=== PATIENT | female | born 1990 | race Asian ===

== ENCOUNTER → 2019-01-27 | Outpatient (REF) | payer OTHER | LOC: M LAB LCGH 09:12 | PROVIDERS: ATTEND Obstetrics & Gynecology | DX: Z87.898 Personal history of other specified conditions (principal) ==

== ENCOUNTER → 2020-08-14 | Outpatient (REF) | payer OTHER ==
[2020-08-14 18:27] LABS: MAU/CREAT RATIO 227.4 MCG/MG (0.0-30.0)
== END ==
LOC: M LAB REF 17:14
PROVIDERS: ATTEND Internal Medicine Endocrinology, Diabetes & Metabolism
DX: E11.65 Type 2 diabetes mellitus with hyperglycemia (principal)

== ENCOUNTER 2021-04-04 14:24 | Inpatient (IN) | payer OTHER ==
[~2021-04-04] VITALS: Ht 154.9 cm; Wt 86.0 kg
[2021-04-04] MEDS ORDERED: TRUL0.5I SC (14:33)
[2021-04-04] MEDS ORDERED: LISI20TA33 PO (14:33)
[2021-04-04] MEDS ORDERED: STEG15TA PO (14:33)
[2021-04-04] MEDS ORDERED: VASC1CAP2 PO (14:33)
[2021-04-04] MEDS ORDERED: FENO134C19 PO (14:33)
[2021-04-04] MEDS ORDERED: BASA100I SC (14:34)
[2021-04-04 16:45] LABS: BASO # 0.1 10^3/uL (0.0-0.2); BASO % 0.4 % (0.0-1.0); EOS # 0.3 10^3/uL (0.0-0.5); EOS % 1.4 % (0.0-3.0); HEMATOCRIT 39.9 % (36.0-47.0); LYMPH # 2.3 10^3/uL (1.5-5.0); LYMPH % 12.2 % (24.0-44.0); MEAN CORPUSCULAR VOLUME 84.4 fl (80.0-96.0); MONO # 0.8 10^3/uL (0.0-0.8); NEUTROPHILS # 15.6 10^3/uL (1.5-8.5); NEUTROPHILS % 81.4 % (36.0-66.0); PLATELET COUNT, AUTOMATED 376 10^3/uL (150-450); RED BLOOD COUNT 4.73 10^6/uL (4.00-5.40); WHITE BLOOD COUNT 19.2 10^3/uL (4.0-10.0)
[2021-04-04] MEDS ORDERED: PANTOPRAZOLE 40MG VIAL (C9113 PER 1) IV ONE (16:50)
[2021-04-04] MEDS ORDERED: SUCRALFATE 1 GM TAB PO ONE (16:50)
[2021-04-04] MEDS ORDERED: GI COCKTAIL 50ML BTL(HYOSCYAMINE/MAALOX/LIDOCAINE VISCOUS)(1:3:1) PO ONE (16:50)
[2021-04-04] MEDS ORDERED: NS 1,000 ML IV ONE (16:50)
[2021-04-04] MEDS ORDERED: ONDANSETRON 4MG/2ML VIAL IV ONE (16:50)
[2021-04-04 17:09] LABS: HCG, SERUM QUALITATIVE NEGATIVE (NEGATIVE)
[2021-04-04 17:33] LABS: ALBUMIN 3.2 GM/DL (3.2-5.2); BILIRUBIN,DIRECT < 0.1 MG/DL (0.0-0.2); BILIRUBIN,TOTAL 1.3 MG/DL (0.2-1.0); LIPASE 4325 U/L (73-393); TOTAL PROTEIN 7.9 GM/DL (6.4-8.2)
[2021-04-04 18:06] LABS: HEMOGLOBIN 13.8 g/dl (12.0-15.5)
[2021-04-04 18:07] LABS: MEAN CORPUSCULAR HEMOGLOBIN 29.1 pg (27.0-33.0); MEAN CORPUSCULAR HGB CONC 33.9 g/dl (32.0-36.5)
[2021-04-04] MEDS ORDERED: MORPHINE 4 MG/ML 1ML VIAL/SYRINGE (J2270) IV ONE (18:50)
[2021-04-04] MEDS ORDERED: ISOVUE-370 76% 100ML VIAL As Ordered ONE (18:59)
[2021-04-04 19:49] LABS: ALT/SGPT 39 U/L (12-78)
[2021-04-04] MEDS ORDERED: KETOROLAC 30 MG/ML 1ML VIAL IV ONE (21:05)
[2021-04-04] MEDS: NS 1,000 ML IV SCH (21:45)
[2021-04-04] MEDS ORDERED: MOM 30ML SUSPENSION UDC PO PRN (21:45)
[2021-04-04] MEDS ORDERED: ONDANSETRON 4MG/2ML VIAL IV PRN (21:50)
[2021-04-04] MEDS ORDERED: MORPHINE 4 MG/ML 1ML VIAL/SYRINGE (J2270) IV PRN (21:50)
[2021-04-04] MEDS ORDERED: GLUCAGON INJ 1MG VIAL SC PRN (21:55)
[2021-04-04] MEDS ORDERED: GLUCOSE 4GM CHEW TABLET PO PRN (21:55)
[2021-04-04] MEDS ORDERED: DEXTROSE 50% 50 ML SYRINGE IV PRN (21:55)
[2021-04-04] MEDS ORDERED: FLUC150T9 PO (21:59)
[2021-04-04] MEDS ORDERED: HOME MED LIST COMPLETE! XX SCH (22:00)
[2021-04-04] MEDS: LEVEMIR (INSULIN DETEMIR) 1 UNITS/0.01ML SC SCH (22:46)
[2021-04-05 00:23] LABS: CHOLESTEROL LEVEL 466 MG/DL (<200); CHOLESTEROL RISK RATIO 12.263 (<5); HDL CHOLESTEROL 38 MG/DL (>40); NON-HDL-C 428 MG/DL; TRIGLYCERIDES LEVEL 3406 MG/DL (<150)
[2021-04-05 00:48] LABS: RSV AMPLIFICATION NEGATIVE (NEGATIVE)
[2021-04-05 02:00] VITALS: BP 152/84
[2021-04-05] MEDS: NS 1,000 ML IV SCH ×4 (04:43→23:36)
[2021-04-05] MEDS: ACETAMINOPHEN TAB 650MG DOSE (2X325MG) PO PRN ×3 (04:48→21:00)
[2021-04-05 06:00] VITALS: BP 152/94
[2021-04-05 06:05] LABS: HEMATOCRIT 35.1 % (36.0-47.0); HEMOGLOBIN 12.7 g/dl (12.0-15.5); MEAN CORPUSCULAR HEMOGLOBIN 30.5 pg (27.0-33.0); MEAN CORPUSCULAR HGB CONC 36.2 g/dl (32.0-36.5); MEAN CORPUSCULAR VOLUME 84.4 fl (80.0-96.0); PLATELET COUNT, AUTOMATED 283 10^3/uL (150-450); RED BLOOD COUNT 4.16 10^6/uL (4.00-5.40); WHITE BLOOD COUNT 16.5 10^3/uL (4.0-10.0)
[2021-04-05] MEDS: HumaLOG INSULIN (NovoLOG) PER UNIT SC SCH ×4 (06:42→18:00)
[2021-04-05 07:14] LABS: ALBUMIN 2.8 GM/DL (3.2-5.2); ALT/SGPT 25 U/L (12-78); BILIRUBIN,TOTAL 0.8 MG/DL (0.2-1.0); BLOOD UREA NITROGEN 9 MG/DL (7-18); CALCIUM LEVEL 7.1 MG/DL (8.5-10.1); CARBON DIOXIDE LEVEL 26 MEQ/L (21-32); CHLORIDE LEVEL 100 MEQ/L (98-107); CREATININE FOR GFR 0.86 MG/DL (0.55-1.30); GLOMERULAR FILTRATION RATE > 60.0 (>60); GLUCOSE, FASTING 271 MG/DL (70-100); MAGNESIUM LEVEL 1.7 MG/DL (1.8-2.4); POTASSIUM SERUM 3.4 MEQ/L (3.5-5.1); SODIUM LEVEL 132 MEQ/L (136-145); TOTAL PROTEIN 6.5 GM/DL (6.4-8.2)
[2021-04-05] MEDS ORDERED: POTASSIUM CHLORIDE 10MEQ SR TABLET PO ONE (07:30)
[2021-04-05] MEDS: ENOXAPARIN 40MG/0.4ML SYRINGE (J1650 PER 10MG) SC SCH (08:56)
[2021-04-05 14:00] VITALS: BP 124/89
[2021-04-05] MEDS: LEVEMIR (INSULIN DETEMIR) 1 UNITS/0.01ML SC SCH (21:19)
[2021-04-05] MEDS ORDERED: PERCOCET 5MG/325MG TAB PO PRN (21:25)
[2021-04-05 22:00] VITALS: BP 139/71
[2021-04-06] MEDS: HumaLOG INSULIN (NovoLOG) PER UNIT SC SCH ×4 (00:18→18:00)
[2021-04-06] MEDS: NS 1,000 ML IV SCH ×4 (01:35→18:27)
[2021-04-06 06:00] VITALS: BP 138/83
[2021-04-06] MEDS: ACETAMINOPHEN TAB 650MG DOSE (2X325MG) PO PRN (06:43)
[2021-04-06 07:01] LABS: BASO # 0.1 10^3/uL (0.0-0.2); BASO % 0.3 % (0.0-1.0); EOS % 0.2 % (0.0-3.0); HEMATOCRIT 34.6 % (36.0-47.0); HEMOGLOBIN 11.9 g/dl (12.0-15.5); LYMPH % 10.3 % (24.0-44.0); MEAN CORPUSCULAR HEMOGLOBIN 29.4 pg (27.0-33.0); MEAN CORPUSCULAR HGB CONC 34.4 g/dl (32.0-36.5); MEAN CORPUSCULAR VOLUME 85.4 fl (80.0-96.0); MONO # 1.1 10^3/uL (0.0-0.8); MONO % 5.8 % (2.0-8.0); NEUTROPHILS # 16.2 10^3/uL (1.5-8.5); NEUTROPHILS % 82.6 % (36.0-66.0); PLATELET COUNT, AUTOMATED 252 10^3/uL (150-450); RED BLOOD COUNT 4.05 10^6/uL (4.00-5.40); WHITE BLOOD COUNT 19.6 10^3/uL (4.0-10.0)
[2021-04-06 07:44] LABS: BLOOD UREA NITROGEN 5 MG/DL (7-18); CALCIUM LEVEL 7.8 MG/DL (8.5-10.1); CARBON DIOXIDE LEVEL 23 MEQ/L (21-32); CHLORIDE LEVEL 104 MEQ/L (98-107); CREATININE FOR GFR 0.73 MG/DL (0.55-1.30); GLOMERULAR FILTRATION RATE > 60.0 (>60); GLUCOSE, FASTING 174 MG/DL (70-100); LIPASE 776 U/L (73-393); MAGNESIUM LEVEL 1.9 MG/DL (1.8-2.4); POTASSIUM SERUM 3.5 MEQ/L (3.5-5.1); SODIUM LEVEL 135 MEQ/L (136-145); TRIGLYCERIDES LEVEL 1169 MG/DL (<150)
[2021-04-06] MEDS: ENOXAPARIN 40MG/0.4ML SYRINGE (J1650 PER 10MG) SC SCH (08:48)
[2021-04-06] MEDS: IBUPROFEN 600MG TAB PO PRN ×2 (08:49→15:39)
[2021-04-06] MEDS ORDERED: ISOVUE-370 76% 100ML VIAL As Ordered ONE (10:33)
[2021-04-06 14:00] VITALS: BP 133/92
[2021-04-06 17:15] VITALS: BP 154/102
[2021-04-06] MEDS ORDERED: FIORICET TAB PO ONE (18:00)
[2021-04-06] MEDS: LEVEMIR (INSULIN DETEMIR) 1 UNITS/0.01ML SC SCH (20:40)
[2021-04-06 22:00] VITALS: BP 146/98
[2021-04-07] MEDS: NS 1,000 ML IV SCH ×2 (01:13→08:12)
[2021-04-07] MEDS: IBUPROFEN 600MG TAB PO PRN ×3 (02:47→21:42)
[2021-04-07 06:00] VITALS: BP 137/86
[2021-04-07] MEDS: HumaLOG INSULIN (NovoLOG) PER UNIT SC SCH ×4 (06:00→18:34)
[2021-04-07 06:54] LABS: BASO % 0.2 % (0.0-1.0); EOS # 0.2 10^3/uL (0.0-0.5); HEMATOCRIT 34.2 % (36.0-47.0); HEMOGLOBIN 11.4 g/dl (12.0-15.5); LYMPH # 2.4 10^3/uL (1.5-5.0); LYMPH % 13.5 % (24.0-44.0); MEAN CORPUSCULAR HEMOGLOBIN 28.8 pg (27.0-33.0); MEAN CORPUSCULAR HGB CONC 33.3 g/dl (32.0-36.5); MEAN CORPUSCULAR VOLUME 86.4 fl (80.0-96.0); MONO # 0.8 10^3/uL (0.0-0.8); MONO % 4.6 % (2.0-8.0); NEUTROPHILS # 14.1 10^3/uL (1.5-8.5); NEUTROPHILS % 79.9 % (36.0-66.0); PLATELET COUNT, AUTOMATED 261 10^3/uL (150-450); RED BLOOD COUNT 3.96 10^6/uL (4.00-5.40); WHITE BLOOD COUNT 17.7 10^3/uL (4.0-10.0)
[2021-04-07 07:12] LABS: ALBUMIN 2.6 GM/DL (3.2-5.2); ALT/SGPT 21 U/L (12-78); BILIRUBIN,TOTAL 0.6 MG/DL (0.2-1.0); BLOOD UREA NITROGEN 5 MG/DL (7-18); CALCIUM LEVEL 7.7 MG/DL (8.5-10.1); CARBON DIOXIDE LEVEL 21 MEQ/L (21-32); CHLORIDE LEVEL 106 MEQ/L (98-107); CREATININE FOR GFR 0.69 MG/DL (0.55-1.30); GLOMERULAR FILTRATION RATE > 60.0 (>60); GLUCOSE, FASTING 133 MG/DL (70-100); LIPASE 597 U/L (73-393); POTASSIUM SERUM 3.2 MEQ/L (3.5-5.1); SODIUM LEVEL 138 MEQ/L (136-145); TOTAL PROTEIN 6.5 GM/DL (6.4-8.2); TRIGLYCERIDES LEVEL 709 MG/DL (<150)
[2021-04-07] MEDS ORDERED: POTASSIUM CHLORIDE 10MEQ SR TABLET PO ONE (07:25)
[2021-04-07] MEDS: ENOXAPARIN 40MG/0.4ML SYRINGE (J1650 PER 10MG) SC SCH (08:12)
[2021-04-07 14:00] VITALS: BP 150/92
[2021-04-07] MEDS: ACETAMINOPHEN TAB 650MG DOSE (2X325MG) PO PRN (14:59)
[2021-04-07] MEDS ORDERED: HumaLOG INSULIN (NovoLOG) PER UNIT SC SCH (21:00)
[2021-04-07] MEDS: LEVEMIR (INSULIN DETEMIR) 1 UNITS/0.01ML SC SCH (21:43)
[2021-04-07 22:00] VITALS: BP 152/90
[2021-04-08 06:00] VITALS: BP 148/91
[2021-04-08 06:05] LABS: BASO % 0.3 % (0.0-1.0); EOS # 0.4 10^3/uL (0.0-0.5); EOS % 3.3 % (0.0-3.0); HEMATOCRIT 33.9 % (36.0-47.0); HEMOGLOBIN 11.4 g/dl (12.0-15.5); LYMPH # 2.3 10^3/uL (1.5-5.0); LYMPH % 18.9 % (24.0-44.0); MEAN CORPUSCULAR HEMOGLOBIN 28.9 pg (27.0-33.0); MEAN CORPUSCULAR HGB CONC 33.6 g/dl (32.0-36.5); MONO # 0.5 10^3/uL (0.0-0.8); MONO % 4.5 % (2.0-8.0); NEUTROPHILS # 8.6 10^3/uL (1.5-8.5); NEUTROPHILS % 72.4 % (36.0-66.0); PLATELET COUNT, AUTOMATED 295 10^3/uL (150-450); RED BLOOD COUNT 3.94 10^6/uL (4.00-5.40); WHITE BLOOD COUNT 11.9 10^3/uL (4.0-10.0)
[2021-04-08 06:25] LABS: BLOOD UREA NITROGEN 5 MG/DL (7-18); CALCIUM LEVEL 8.6 MG/DL (8.5-10.1); CARBON DIOXIDE LEVEL 25 MEQ/L (21-32); CHLORIDE LEVEL 105 MEQ/L (98-107); CREATININE FOR GFR 0.74 MG/DL (0.55-1.30); GLOMERULAR FILTRATION RATE > 60.0 (>60); GLUCOSE, FASTING 185 MG/DL (70-100); LIPASE 773 U/L (73-393); POTASSIUM SERUM 3.4 MEQ/L (3.5-5.1); SODIUM LEVEL 138 MEQ/L (136-145); TRIGLYCERIDES LEVEL 593 MG/DL (<150)
[2021-04-08 07:57] VITALS: BP 148/91
[2021-04-08] MEDS: HumaLOG INSULIN (NovoLOG) PER UNIT SC SCH ×2 (07:58→12:45)
[2021-04-08] MEDS: ENOXAPARIN 40MG/0.4ML SYRINGE (J1650 PER 10MG) SC SCH (07:58)
[2021-04-08] MEDS ORDERED: POTASSIUM CHLORIDE 10MEQ SR TABLET PO ONE (08:00)
== END 2021-04-08 15:35 | disposition home or self-care (01) | DRG 282 ==
LOC: M ED 14:24 → M ED INP 21:42 → ENRESERV 23:48 → M MSPAV 04-05 02:00
PROVIDERS: ADMIT Family Medicine; ATTEND Internal Medicine
DX: K85.90 Acute pancreatitis without necrosis or infection, unspecified (principal); E11.65 Type 2 diabetes mellitus with hyperglycemia; I10 Essential (primary) hypertension; E66.9 Obesity, unspecified; Z68.35 Body mass index [BMI] 35.0-35.9, adult; D72.829 Elevated white blood cell count, unspecified; Z79.4 Long term (current) use of insulin; Z20.822 Contact with and (suspected) exposure to COVID-19; Z91.14 Patient's other noncompliance with medication regimen; R50.9 Fever, unspecified

== ENCOUNTER 2025-05-05 23:18 | Emergency (ER) | payer OTHER ==
[~2025-05-05] VITALS: Ht 154.9 cm; Wt 72.7 kg
[~2025-05-05 23:18] MED LIST: BASA100I SC; FENO134C19 PO; FLUC150T9 PO; LISI20TA33 PO; STEG15TA PO; TRUL0.5I SC; VASC1CAP2 PO
[2025-05-06 01:37] LABS: BASO # 0.1 10^3/uL (0.0-0.2); BASO % 0.4 % (0.0-1.0); EOS # 0.6 10^3/uL (0.0-0.5); EOS % 3.7 % (0.0-3.0); LYMPH # 5.2 10^3/uL (1.5-5.0); LYMPH % 35.1 % (24.0-44.0); MONO # 0.8 10^3/uL (0.0-0.8); MONO % 5.0 % (2.0-8.0); NEUTROPHILS # 8.2 10^3/uL (1.5-8.5); NEUTROPHILS % 55.5 % (36.0-66.0); PLATELET COUNT, AUTOMATED 293 10^3/uL (150-450)
[2025-05-06 02:42] LABS: APPEARANCE, URINE MANUAL HAZY (CLEAR); COLOR, URINE MANUAL RED (YELLOW)
[2025-05-06 02:43] LABS: GLUCOSE, URINE (UA) MANUAL 1+(100 MG/DL) mg/dL (NEGATIVE); PH,URINE MAN 5.0 UNITS (5.0 - 7.0); PROTEIN, URINE MANUAL 2+ mg/dL (NEGATIVE); SPECIFIC GRAVITY,URINE MANUAL 1.025 (1.002-1.035)
[2025-05-06 02:44] LABS: BILIRUBIN, URINE MANUAL NEGATIVE (NEGATIVE); BLOOD URINE MANUAL POSITIVE (NEGATIVE); KETONE, URINE MANUAL NEGATIVE (NEGATIVE); LEUKOCYTE ESTERASE, URINE MAN POSITIVE (NEGATIVE); NITRITE, URINE MANUAL NEGATIVE (NEGATIVE); UROBILINOGEN, URINE MANUAL NORMAL (NORMAL)
[2025-05-06 02:53] LABS: RBC, URINE TNTC /hpf (0-3)
[2025-05-06 02:54] LABS: SQUAMOUS EPITHELIAL CELL URINE NONE SEEN /hpf (SMALL AMT)
[2025-05-06 02:55] LABS: BACTERIA, URINE NONE SEEN; HYALINE CAST, URINE NONE SEEN /lpf (0-1)
[2025-05-06 05:14] VITALS: BP 146/94; TEMP 97.5; O2SAT 98
[2025-05-06 05:18] LABS: Trichomonas vaginalis (AMP) NOT DETECTED (NEGATIVE)
== END 2025-05-06 05:03 | disposition home or self-care (01) ==
LOC: M ED 23:18
DX: N93.9 Abnormal uterine and vaginal bleeding, unspecified (principal); E11.9 Type 2 diabetes mellitus without complications; G43.909 Migraine, unspecified, not intractable, without status migrainosus; E78.5 Hyperlipidemia, unspecified; Z79.84 Long term (current) use of oral hypoglycemic drugs; Z88.8 Allergy status to other drugs, medicaments and biological substances; Z79.899 Other long term (current) drug therapy; Z79.4 Long term (current) use of insulin